=== PATIENT | female | born 1960 | race Caucasian/White ===

== ENCOUNTER 2017-05-28 06:41 | Inpatient (IN) | payer MEDICAID ==
[~2017-05-28] VITALS: Ht 177.8 cm; Wt 63.0 kg
[2017-05-28] MEDS ORDERED: SODIUM CHLORIDE 0.9% 1,000 ML IV ONE ×2 (07:08→09:31)
[2017-05-28] MEDS ORDERED: THIAMINE 100MG TABLET PO ONE (07:30)
[2017-05-28] MEDS ORDERED: LORazepam 2 MG/ML, 1ML IVPush ONE (07:30)
[2017-05-28] MEDS ORDERED: FOLIC ACID 1 MG TABLET PO ONE (07:30)
[2017-05-28] MEDS ORDERED: SODIUM CHLORIDE 0.9% 1,000ML IVBOLUS ONE (07:30)
[2017-05-28] MEDS ORDERED: ONDANSETRON 2MG/ML, 2ML IVPush ONE (07:30)
[2017-05-28] MEDS ORDERED: SODIUM CHLORIDE FLUSH 10ML SYR IVF ONE (07:30)
[2017-05-28] MEDS ORDERED: THIAMINE 100MG TABLET ONE (07:44)
[2017-05-28] MEDS ORDERED: ONDANSETRON 2MG/ML, 2ML ONE (07:44)
[2017-05-28] MEDS ORDERED: LORazepam 2 MG/ML, 1ML ONE (07:45)
[2017-05-28 07:55] LABS: ASPARTATE AMINO TRANSFERASE 287 U/L (15-37); BLOOD UREA NITROGEN 7 mg/dL (7-18); HEMATOCRIT 42.4 % (34.6-47.8); HEMOGLOBIN 14.7 g/dL (11.7-16.4); WHITE BLOOD COUNT 4.6 x10^3/uL (3.4-10)
[2017-05-28] MEDS ORDERED: SODIUM CHLORIDE FLUSH 10ML SYR IVF PRN (10:00)
[2017-05-28] MEDS: THIAMINE 100MG TABLET PO SCH (11:30)
[2017-05-28] MEDS ORDERED: PROMETHAZINE 25 MG/ML, 1ML IM PRN (11:30)
[2017-05-28] MEDS: FOLIC ACID 1 MG TABLET PO SCH (11:30)
[2017-05-28 12:59] VITALS: BP 149/68
[2017-05-28] MEDS: SODIUM CHLORIDE 0.9% 1,000 ML IV SCH ×2 (14:00→21:43)
[2017-05-28] MEDS: LACTULOSE 10 GM/15 ML UDC PO SCH (21:42)
[2017-05-28] MEDS: FAMOTIDINE 20 MG TABLET PO SCH (21:42)
[2017-05-28] MEDS: LORazepam 2 MG/ML, 1ML IVPush PRN (21:43)
[2017-05-28 21:59] VITALS: BP 138/65
[2017-05-29 02:54] VITALS: BP 146/76
[2017-05-29 05:37] LABS: BLOOD UREA NITROGEN 6 mg/dL (7-18)
[2017-05-29 05:42] LABS: HEMATOCRIT 40.4 % (34.6-47.8); HEMOGLOBIN 14.1 g/dL (11.7-16.4); WHITE BLOOD COUNT 3.9 x10^3/uL (3.4-10)
[2017-05-29 05:51] LABS: ASPARTATE AMINO TRANSFERASE 182 U/L (15-37)
[2017-05-29 06:48] VITALS: BP 128/72
[2017-05-29] MEDS: SODIUM CHLORIDE 0.9% 1,000 ML IV SCH ×2 (07:00→20:40)
[2017-05-29] MEDS: FAMOTIDINE 20 MG TABLET PO SCH ×2 (10:03→20:40)
[2017-05-29] MEDS: THIAMINE 100MG TABLET PO SCH (10:03)
[2017-05-29] MEDS: LACTULOSE 10 GM/15 ML UDC PO SCH ×3 (10:03→20:40)
[2017-05-29] MEDS: FOLIC ACID 1 MG TABLET PO SCH (10:03)
[2017-05-29] MEDS: LORazepam 2 MG/ML, 1ML IVPush PRN (10:04)
[2017-05-29] MEDS ORDERED: POTASSIUM PHOSPHATE 44 MEQ in SODIUM CHLORIDE 0.9% 500 ML IV ONE (10:30)
[2017-05-29] MEDS ORDERED: MAGNESIUM SULFATE PMX 4GM/100M 100 ML IV ONE (10:30)
[2017-05-29 13:39] VITALS: BP 130/64
[2017-05-29] MEDS: ENOXAPARIN 40 MG/0.4 ML SQ SCH (18:27)
[2017-05-29 19:26] VITALS: BP 124/60
[2017-05-30 01:18] VITALS: BP 143/73
[2017-05-30 04:49] LABS: DAU SCREEN DISCLAIMER
[2017-05-30] MEDS: SODIUM CHLORIDE 0.9% 1,000 ML IV SCH ×2 (05:47→12:20)
[2017-05-30 05:51] LABS: BLOOD UREA NITROGEN 7 mg/dL (7-18)
[2017-05-30 05:52] LABS: HEMATOCRIT 40.3 % (34.6-47.8); HEMOGLOBIN 14.1 g/dL (11.7-16.4); WHITE BLOOD COUNT 2.8 x10^3/uL (3.4-10)
[2017-05-30 05:55] LABS: ASPARTATE AMINO TRANSFERASE 131 U/L (15-37)
[2017-05-30 06:51] VITALS: BP 161/79
[2017-05-30] MEDS: FOLIC ACID 1 MG TABLET PO SCH (09:59)
[2017-05-30] MEDS: THIAMINE 100MG TABLET PO SCH (10:00)
[2017-05-30] MEDS: FAMOTIDINE 20 MG TABLET PO SCH ×2 (10:00→21:07)
[2017-05-30] MEDS: LORazepam 2 MG/ML, 1ML IVPush PRN ×3 (10:00→21:08)
[2017-05-30] MEDS: LACTULOSE 10 GM/15 ML UDC PO SCH ×2 (10:00→21:07)
[2017-05-30 14:07] VITALS: BP 145/88
[2017-05-30] MEDS: ENOXAPARIN 40 MG/0.4 ML SQ SCH (17:40)
[2017-05-30 19:38] VITALS: BP 137/82
[2017-05-31 01:42] VITALS: BP 130/78
[2017-05-31] MEDS: LORazepam 2 MG/ML, 1ML IVPush PRN ×3 (04:48→14:25)
[2017-05-31 06:18] LABS: ASPARTATE AMINO TRANSFERASE 111 U/L (15-37); BLOOD UREA NITROGEN 9 mg/dL (7-18)
[2017-05-31 07:02] VITALS: BP 124/75
[2017-05-31] MEDS: THIAMINE 100MG TABLET PO SCH (08:53)
[2017-05-31] MEDS: FAMOTIDINE 20 MG TABLET PO SCH ×2 (08:53→20:15)
[2017-05-31] MEDS: FOLIC ACID 1 MG TABLET PO SCH (08:53)
[2017-05-31] MEDS: LACTULOSE 10 GM/15 ML UDC PO SCH ×2 (08:53→20:14)
[2017-05-31] MEDS ORDERED: MAGNESIUM SULFATE PMX 2GM/50ML 50 ML IV ONE (10:00)
[2017-05-31] MEDS: KETOROLAC 30 MG/1 ML IVPush SCH ×3 (10:40→23:00)
[2017-05-31] MEDS: POTASSIUM CHLORIDE 20 MEQ, MAGNESIUM SULFATE 1 GM, THIAMINE 100 MG, FOLIC ACID 1 MG, MV... IV SCH (14:25)
[2017-05-31 14:40] VITALS: BP 165/85
[2017-05-31] MEDS: morphine SULFATE 10 MG/ML, 1ML IVPush PRN ×2 (15:16→20:22)
[2017-05-31] MEDS: ENOXAPARIN 40 MG/0.4 ML SQ SCH (17:36)
[2017-05-31 19:52] VITALS: BP 156/82
[2017-06-01 01:26] VITALS: BP 148/76
[2017-06-01] MEDS: morphine SULFATE 10 MG/ML, 1ML IVPush PRN ×2 (01:26→09:05)
[2017-06-01] MEDS: KETOROLAC 30 MG/1 ML IVPush SCH ×4 (05:01→23:07)
[2017-06-01 05:36] LABS: HEMATOCRIT 40.9 % (34.6-47.8); HEMOGLOBIN 14.2 g/dL (11.7-16.4); WHITE BLOOD COUNT 3.3 x10^3/uL (3.4-10)
[2017-06-01 06:02] LABS: ASPARTATE AMINO TRANSFERASE 96 U/L (15-37); BLOOD UREA NITROGEN 10 mg/dL (7-18)
[2017-06-01 07:48] VITALS: BP 149/79
[2017-06-01] MEDS: FOLIC ACID 1 MG TABLET PO SCH (08:54)
[2017-06-01] MEDS: LACTULOSE 10 GM/15 ML UDC PO SCH ×2 (08:54→21:04)
[2017-06-01] MEDS: THIAMINE 100MG TABLET PO SCH (08:54)
[2017-06-01] MEDS: FAMOTIDINE 20 MG TABLET PO SCH ×2 (08:54→21:03)
[2017-06-01] MEDS: POTASSIUM CHLORIDE 20 MEQ, MAGNESIUM SULFATE 1 GM, THIAMINE 100 MG, FOLIC ACID 1 MG, MV... IV SCH (15:53)
[2017-06-01] MEDS: ENOXAPARIN 40 MG/0.4 ML SQ SCH (17:57)
[2017-06-01 18:50] VITALS: BP 136/71
[2017-06-02 00:34] VITALS: BP 157/75
[2017-06-02] MEDS: KETOROLAC 30 MG/1 ML IVPush SCH ×2 (05:05→12:45)
[2017-06-02 05:55] LABS: ASPARTATE AMINO TRANSFERASE 99 U/L (15-37); BLOOD UREA NITROGEN 7 mg/dL (7-18)
[2017-06-02 06:00] LABS: HEMATOCRIT 42.9 % (34.6-47.8); HEMOGLOBIN 14.9 g/dL (11.7-16.4); WHITE BLOOD COUNT 3.6 x10^3/uL (3.4-10)
[2017-06-02] MEDS ORDERED: FOSFOMYCIN 3 GM PACKET PO ONE (07:00)
[2017-06-02 07:05] VITALS: BP 125/80
[2017-06-02] MEDS: THIAMINE 100MG TABLET PO SCH (10:37)
[2017-06-02] MEDS: FAMOTIDINE 20 MG TABLET PO SCH (10:38)
[2017-06-02] MEDS: FOLIC ACID 1 MG TABLET PO SCH (10:38)
[2017-06-02] MEDS: LACTULOSE 10 GM/15 ML UDC PO SCH (13:46)
[2017-06-02] MEDS ORDERED: FOSF3PAC PO (15:03)
[2017-06-02] MEDS ORDERED: LACT10SO5 PO ×2 (15:18→15:20)
[2017-06-02 15:30] VITALS: BP 144/87
[2017-06-03 12:06] LABS: HEPATITIS C PCR QUANTITATION 309000 IU/mL (.)
== END 2017-06-02 17:28 | disposition home or self-care (01) | DRG 391 ==
LOC: ED 08:03 → EDIP 09:31 → 3NE 12:36
PROVIDERS: ADMIT Hospitalist; ATTEND Hospitalist
DX: K29.20 Alcoholic gastritis without bleeding (principal); K85.20 Alcohol induced acute pancreatitis without necrosis or infection; K70.10 Alcoholic hepatitis without ascites; F10.239 Alcohol dependence with withdrawal, unspecified; N39.0 Urinary tract infection, site not specified; F19.94 Other psychoactive substance use, unspecified with psychoactive substance-induced mood disorder; F15.90 Other stimulant use, unspecified, uncomplicated; F17.200 Nicotine dependence, unspecified, uncomplicated; F41.9 Anxiety disorder, unspecified; Y90.4 Blood alcohol level of 80-99 mg/100 ml; Z66 Do not resuscitate; Z82.49 Family history of ischemic heart disease and other diseases of the circulatory system
CPT/HCPCS: 36415; 76700; 80053; 80307; 81001; 82140; 82550; 82607; 83690; 83735; 84100; 84443; 85025; 85610; 86704; 86706; 86708; 86803; 87077; 87086; 87186; 87340; 87522; 93306; 96361; 96374; J1650; J1885; J2405; J3411; J3475; J3480; G0479; J2060; J2270; J7030; J7040

== ENCOUNTER 2017-07-20 14:13 | Emergency (ER) | payer MEDICAID ==
[~2017-07-20] VITALS: Ht 154.9 cm; Wt 81.0 kg
[~2017-07-20 14:13] MED LIST: FOSF3PAC PO; LACT10SO5 PO
[2017-07-20 14:31] VITALS: BP 100/52
== END 2017-07-20 16:15 | disposition home or self-care (01) ==
LOC: ED 16:00
DX: F10.220 Alcohol dependence with intoxication, uncomplicated (principal)
CPT/HCPCS: 99283

== ENCOUNTER 2017-09-07 16:53 | Emergency (ER) | payer MEDICAID ==
[~2017-09-07] VITALS: Ht 170.2 cm; Wt 65.0 kg
[2017-09-07 23:08] VITALS: BP 120/62
== END 2017-09-07 23:10 | disposition home or self-care (01) ==
LOC: ED 18:26
DX: F10.220 Alcohol dependence with intoxication, uncomplicated (principal)
CPT/HCPCS: 99283

== ENCOUNTER 2017-09-09 02:54 | Emergency (ER) | payer MEDICAID ==
[~2017-09-09] VITALS: Ht 170.2 cm; Wt 59.3 kg
[2017-09-09] MEDS ORDERED: NALOXONE 1 MG/ML, 2ML ONE (03:05)
[2017-09-09] MEDS ORDERED: NALOXONE 1 MG/ML, 2ML IVPush ONE (03:30)
[2017-09-09] MEDS ORDERED: SODIUM CHLORIDE 0.9% 1,000ML IVBOLUS ONE (04:00)
[2017-09-09 10:24] VITALS: BP 116/61
== END 2017-09-09 11:35 | disposition home or self-care (01) ==
LOC: ED 05:09
DX: F10.120 Alcohol abuse with intoxication, uncomplicated (principal); F15.10 Other stimulant abuse, uncomplicated; Z79.899 Other long term (current) drug therapy
CPT/HCPCS: 36415; 80307; 82962; 96361; 96374; 99285; J2310; J7030

== ENCOUNTER 2018-01-27 15:59 | Emergency (ER) | payer MEDICAID ==
[~2018-01-27] VITALS: Ht 177.8 cm; Wt 78.0 kg
[2018-01-27 16:47] LABS: ANION GAP 9 mmol/L (5-15); CALCIUM 7.2 mg/dL (8.5-10.1); CHLORIDE 113 mmol/L (98-107); CREATININE 0.53 mg/dL (0.55-1.02)
[2018-01-27 21:20] VITALS: BP 137/80
== END 2018-01-27 22:31 | disposition home or self-care (01) ==
LOC: ED 19:03
DX: F10.221 Alcohol dependence with intoxication delirium (principal); G92 Toxic encephalopathy; Z79.899 Other long term (current) drug therapy
CPT/HCPCS: 36415; 80048; 80307; 83735; 99284

== ENCOUNTER 2018-01-30 09:34 | Inpatient (IN) | payer MEDICAID, OTHER ==
[~2018-01-30] VITALS: Ht 177.8 cm; Wt 57.5 kg
[2018-01-30] MEDS ORDERED: THIAMINE 100MG TABLET ONE (09:56)
[2018-01-30] MEDS ORDERED: SODIUM CHLORIDE 0.9% 1,000ML IVBOLUS ONE (10:00)
[2018-01-30] MEDS ORDERED: THIAMINE 100MG TABLET PO ONE (10:00)
[2018-01-30 10:06] LABS: BASOPHILS # (AUTO) 0.01 x10^3/uL (0-0.1); BASOPHILS % (AUTO) 0 % (0-1); EOSINOPHILS # (AUTO) 0.01 x10^3/uL (0-0.4); EOSINOPHILS % (AUTO) 0 % (1-7); LYMPHOCYTES % (AUTO) 8 % (22-44); MD NO; MEAN CORPUSCULAR HEMOGLOBIN 32.1 pg (27.0-34.8); MEAN CORPUSCULAR HGB CONC 34.4 g/dL (32.4-35.8); MEAN CORPUSCULAR VOLUME 93.5 fL (80-100); MEAN PLATELET VOLUME 6.5 fL (7.4-10.4); MONOCYTES # (AUTO) 0.12 x10^3/uL (0.2-0.8); MONOCYTES % (AUTO) 2 % (2-9); NEUTROPHILS # (AUTO) 4.66 x10^3/uL (1.8-6.8); NEUTROPHILS % (AUTO) 90 % (42-75); PLATELET COUNT 112 x10^3/uL (130-400); RED CELL DISTRIBUTION WIDTH 13.1 % (9.6-15.2)
[2018-01-30 10:15] LABS: ALANINE AMINOTRANSFERASE 53 U/L (12-78); ALBUMIN 3.4 g/dL (3.4-5.0); ANION GAP 11 mmol/L (5-15); CALCIUM 7.9 mg/dL (8.5-10.1); CHLORIDE 103 mmol/L (98-107); CREATININE 0.52 mg/dL (0.55-1.02)
[2018-01-30 10:17] LABS: ALKALINE PHOSPHATASE 137 U/L (45-117); BILIRUBIN,TOTAL 1.1 mg/dL (0.2-1.0); TOTAL PROTEIN 8.4 g/dL (6.4-8.2)
[2018-01-30 11:25] LABS: MICROSCOPIC NOT IND
[2018-01-30 11:26] LABS: CULTURE INDICATED? NO
[2018-01-30] MEDS ORDERED: POTASSIUM CHLORIDE 20 MEQ TAB.ER.PRT PO ONE ×2 (12:30→16:00)
[2018-01-30] MEDS ORDERED: POTASSIUM CHLORIDE 20 MEQ TAB.ER.PRT ONE (12:30)
[2018-01-30 13:42] VITALS: BP 142/78
[2018-01-30 13:47] VITALS: BP 142/78
[2018-01-30] MEDS ORDERED: POTASSIUM CHLORIDE 10 MEQ, MVI ADULT 10 ML, FOLIC ACID 1 MG, MAGNESIUM SULFATE 1 GM in ... IV SCH (15:29)
[2018-01-30] MEDS: ENOXAPARIN 40 MG/0.4 ML SQ SCH ×2 (15:30→16:37)
[2018-01-30] MEDS ORDERED: BACLOFEN 10 MG TABLET PO PRN (15:30)
[2018-01-30] MEDS ORDERED: DOCUSATE 100 MG CAPSULE PO PRN (15:30)
[2018-01-30] MEDS ORDERED: BUTALB/APAP/CAFFEINE 50MG/325MG/40MG PO PRN (15:30)
[2018-01-30] MEDS ORDERED: LABETALOL 5MG/ML, 20ML IV PRN (15:30)
[2018-01-30] MEDS ORDERED: KETOROLAC 30 MG/1 ML IV PRN (15:30)
[2018-01-30] MEDS ORDERED: BISACODYL 10 MG SUPP PR PRN (15:30)
[2018-01-30] MEDS ORDERED: ONDANSETRON 2MG/ML, 2ML IV PRN (15:30)
[2018-01-30] MEDS ORDERED: LORazepam 2 MG/ML, 1ML IV PRN ×4 (15:30)
[2018-01-30] MEDS: LORazepam 2 MG/ML, 1ML IV PRN ×2 (16:37→21:14)
[2018-01-30] MEDS: SUCRALFATE 1 GM/10 ML UDC PO SCH ×2 (16:37→21:04)
[2018-01-30] MEDS: OMEPRAZOLE 20 MG CAPSULE.DR PO SCH (16:37)
[2018-01-30 19:11] VITALS: BP 104/57
[2018-01-31 01:14] VITALS: BP 118/65
[2018-01-31 04:46] LABS: MEAN CORPUSCULAR HEMOGLOBIN 32.6 pg (27.0-34.8); MEAN CORPUSCULAR HGB CONC 34.7 g/dL (32.4-35.8); MEAN CORPUSCULAR VOLUME 94.1 fL (80-100); MEAN PLATELET VOLUME 6.8 fL (7.4-10.4); PLATELET COUNT 97 x10^3/uL (130-400); RED CELL DISTRIBUTION WIDTH 13.8 % (9.6-15.2)
[2018-01-31 04:57] LABS: ALBUMIN 2.7 g/dL (3.4-5.0); ANION GAP 5 mmol/L (5-15); CALCIUM 7.9 mg/dL (8.5-10.1); CHLORIDE 107 mmol/L (98-107)
[2018-01-31 05:01] LABS: ALANINE AMINOTRANSFERASE 37 U/L (12-78); ALKALINE PHOSPHATASE 105 U/L (45-117); BILIRUBIN,TOTAL 1.3 mg/dL (0.2-1.0); CREATININE 0.54 mg/dL (0.55-1.02); TOTAL PROTEIN 6.9 g/dL (6.4-8.2)
[2018-01-31 05:20] LABS: BASOPHILS # (AUTO) 0.02 x10^3/uL (0-0.1); BASOPHILS % (AUTO) 1 % (0-1); EOSINOPHILS # (AUTO) 0.11 x10^3/uL (0-0.4); EOSINOPHILS % (AUTO) 3 % (1-7); LYMPHOCYTES # (AUTO) 1.48 x10^3/uL (1-3.4); LYMPHOCYTES % (AUTO) 41 % (22-44); MD SCAN; MONOCYTES # (AUTO) 0.17 x10^3/uL (0.2-0.8); MONOCYTES % (AUTO) 5 % (2-9); NEUTROPHILS # (AUTO) 1.86 x10^3/uL (1.8-6.8); NEUTROPHILS % (AUTO) 51 % (42-75)
[2018-01-31 07:00] VITALS: BP 106/59
[2018-01-31] MEDS: SUCRALFATE 1 GM/10 ML UDC PO SCH ×4 (07:33→20:16)
[2018-01-31] MEDS: OMEPRAZOLE 20 MG CAPSULE.DR PO SCH (08:44)
[2018-01-31] MEDS: POTASSIUM CHLORIDE 20 MEQ TAB.ER.PRT PO SCH ×2 (11:54→17:15)
[2018-01-31 12:05] VITALS: BP 108/57
[2018-01-31] MEDS ORDERED: LORazepam 0.5MG TABLET PO PRN (13:00)
[2018-01-31] MEDS ORDERED: LORazepam 1MG TABLET PO PRN ×2 (13:00)
[2018-01-31] MEDS: LORazepam 1MG TABLET PO PRN ×3 (17:15→23:27)
[2018-01-31 18:47] VITALS: BP 119/71
[2018-02-01 01:24] VITALS: BP 122/65
[2018-02-01] MEDS: LORazepam 1MG TABLET PO PRN ×2 (04:29→14:56)
[2018-02-01 05:18] LABS: ANION GAP 4 mmol/L (5-15); CHLORIDE 106 mmol/L (98-107)
[2018-02-01 05:19] LABS: CREATININE 0.51 mg/dL (0.55-1.02)
[2018-02-01 07:04] VITALS: BP 112/65
[2018-02-01] MEDS ORDERED: NEUTRA PHOS K 250 MG TABLET PO SCH (10:00)
[2018-02-01] MEDS ORDERED: MAGNESIUM SULFATE PMX 4GM/100M 100 ML IV ONE (10:00)
[2018-02-01] MEDS: SUCRALFATE 1 GM/10 ML UDC PO SCH ×2 (10:01→11:00)
[2018-02-01] MEDS: OMEPRAZOLE 20 MG CAPSULE.DR PO SCH (10:01)
[2018-02-01 12:55] VITALS: BP 119/75
== END 2018-02-01 17:41 | disposition left against medical advice (07) | DRG 432 ==
LOC: ED 12:31 → 3NE 12:42
PROVIDERS: ADMIT Hospitalist; ATTEND Hospitalist
DX: K70.9 Alcoholic liver disease, unspecified (principal); E43 Unspecified severe protein-calorie malnutrition; Z68.1 Body mass index [BMI] 19.9 or less, adult; F10.239 Alcohol dependence with withdrawal, unspecified; D69.6 Thrombocytopenia, unspecified; E83.39 Other disorders of phosphorus metabolism; E83.42 Hypomagnesemia; E87.6 Hypokalemia; F17.200 Nicotine dependence, unspecified, uncomplicated; F41.9 Anxiety disorder, unspecified; K74.60 Unspecified cirrhosis of liver; Z53.21 Procedure and treatment not carried out due to patient leaving prior to being seen by health care provider; Z82.49 Family history of ischemic heart disease and other diseases of the circulatory system
CPT/HCPCS: 36415; 99285; J7042; 80048; 80053; 80307; 81003; 83690; 83735; 84100; 85025; 93005; J1650; J3475; J3480; J2060; J7030

== ENCOUNTER 2018-08-24 11:49 | Emergency (ER) | payer MEDICAID ==
[~2018-08-24] VITALS: Ht 177.8 cm; Wt 46.0 kg
[~2018-08-24 11:49] MED LIST changes: +CEFD300C37 PO; +DOXY100T PO; +GUAI600T31 PO; +VANC1VIA3 PO
--- NOTE | 2018-08-24 13:08 | NUR ---
pt to room from wall.
[2018-08-24 13:24] VITALS: BP 109/67
--- NOTE | 2018-08-24 13:32 | NUR ---
PT BIB [facility] FOR WANTING TO KILL SATAN AND TO DETOX. PT IS ALERT, ORIENTED, WITH NAD. BP: 130/87, HR 86, 94% RA, RR16. PT STATED "I WANT A BEER AND ATIVAN". PT REPORTS THAT HER LAST DRINK WAS TODAY: BEER, VODKA, AND HOT DAME.
--- NOTE | 2018-08-24 13:54 | NUR ---
PT STATED THAT SHE WANTS TO LEAVE AND GO GET HER ABX, BECAUSE SHE NEEDS TO TAKE THEM. MD INFORMED. HE WILL PRINT D/C PAPERS. PT AMBULATED TO WITH STEADY GAIT. PT IS GETTING DRESSEED.
--- NOTE | 2018-08-24 14:13 | NUR ---
Patient given discharge instructions and they have confirmed that they understand the instructions. Patient ambulatory with steady gait.
== END 2018-08-24 14:16 | disposition home or self-care (01) ==
LOC: ED 14:00
DX: F10.220 Alcohol dependence with intoxication, uncomplicated (principal); R56.9 Unspecified convulsions; Z72.9 Problem related to lifestyle, unspecified; Z87.19 Personal history of other diseases of the digestive system; Y90.9 Presence of alcohol in blood, level not specified
CPT/HCPCS: 99283

== ENCOUNTER 2018-09-09 07:25 | Inpatient (IN) | payer MEDICAID ==
[~2018-09-09] VITALS: Ht 177.8 cm; Wt 52.0 kg
[2018-09-09] MEDS ORDERED: SODIUM CHLORIDE 0.9% 1,000ML IVBOLUS ONE (08:00)
[2018-09-09] MEDS ORDERED: LORazepam 2 MG/ML, 1ML IVPush PRN (08:00)
[2018-09-09] MEDS ORDERED: PLEASE ENTER HEIGHT AND WEIGHT MC SCH (08:00)
[2018-09-09] MEDS ORDERED: SODIUM CHLORIDE FLUSH 10ML SYR IVF ONE (08:00)
[2018-09-09] MEDS ORDERED: MAGNESIUM SULFATE 1 GM, THIAMINE 100 MG, FOLIC ACID 1 MG, MVI ADULT 10 ML in SODIUM CHL... IV ONE (08:00)
--- NOTE | 2018-09-09 08:07 | NUR ---
LATE ENTRY 0732. BIB EMS FROM [facility]. PT W/ C/O N/V/D / DETOX FROM ALCOHOL LAST DRINK 09/08 AT 1500. PT WITH DIFFUSE PETICAIAL RASH T/O GROIN, BACK, UPPER TORSO. PT CEACHECTIC, STATES SHE HAS BEEN LOSING WEIGHT OVER PAST FEW MONTHS. PT RPTS HX OF SEIZURES WITH DETOXING. STATES SHE WOULD LIKE TO GET INTO [facility]. DR. LOPEZ AT BEDSIDE, ASSESSMENT REV. AND ORDERS REC'D. ISO CART OUTSIDE OF ROOM. CALL LIGHT W/I REACH
[2018-09-09 08:26] LABS: INTERNATIONAL NORMALIZED RATIO 1.19 (0.93-1.1); PROTHROMBIN TIME 12.4 Seconds (9.6-11.5)
[2018-09-09 08:28] LABS: MEAN CORPUSCULAR HEMOGLOBIN 32.1 pg (27.0-34.8); MEAN CORPUSCULAR HGB CONC 33.9 g/dL (32.4-35.8); MEAN CORPUSCULAR VOLUME 94.9 fL (80-100); MEAN PLATELET VOLUME 8.1 fL (7.4-10.4); PLATELET COUNT 101 x10^3/uL (130-400); RED BLOOD COUNT 4.18 x10^6/uL (3.82-5.3); RED CELL DISTRIBUTION WIDTH 15.2 % (9.6-15.2)
[2018-09-09 08:29] LABS: ALANINE AMINOTRANSFERASE 34 U/L (12-78); ALBUMIN 2.5 g/dL (3.4-5.0); ANION GAP 9 mmol/L (5-15); CALCIUM 7.7 mg/dL (8.5-10.1); CHLORIDE 95 mmol/L (98-107)
[2018-09-09] MEDS ORDERED: CEFTRIAXONE PMX 1GM/50ML 50 ML IV ONE (08:30)
[2018-09-09] MEDS ORDERED: DOXYCYCLINE 100 MG in DEXTROSE 5% 250 ML IV ONE (08:30)
[2018-09-09 08:31] LABS: ALKALINE PHOSPHATASE 107 U/L (45-117); BILIRUBIN,TOTAL 1.5 mg/dL (0.2-1.0); TOTAL PROTEIN 7.3 g/dL (6.4-8.2)
[2018-09-09] MEDS ORDERED: CEFTRIAXONE PMX 1GM/50ML 50 ML ONE (08:49)
[2018-09-09 09:23] LABS: MD YES
[2018-09-09 09:25] LABS: <RBC MORPHOLOGY> NORMAL; BAND#(MANUAL) 1.46 x10^3/uL; BANDS%(MANUAL) 16 % (0-7); LYMPH#(MANUAL) 0.73 x10^3/uL (1-3.4); LYMPHS% (MANUAL) 8 % (22-44); MONOS#(MANUAL) 0.36 x10^3/uL (0.3-2.7); MONOS% (MANUAL) 4 % (2-9); SEG#(MANUAL) 6.55 x10^3/uL (1.8-6.8); SEGS% (MANUAL) 72 % (42-75)
[2018-09-09 09:26] LABS: <PLATELET ESTIMATE> DECREASED; <PLT MORPHOLOGY> NORMAL PLT MORPH
[2018-09-09] MEDS ORDERED: D5%-0.45NACL+KCL 20MEQ 1,000 ML IV SCH (09:51)
[2018-09-09] MEDS ORDERED: ONDANSETRON 2MG/ML, 2ML IVPush PRN (10:00)
[2018-09-09] MEDS ORDERED: GUAIFENESIN/DM 200-20MG, 10ML UDC PO PRN (10:00)
[2018-09-09] MEDS ORDERED: LORazepam 2 MG/ML, 1ML IV PRN ×4 (10:30)
[2018-09-09 10:31] LABS: D-DIMER (DIC) 0.89 ug/mlFEU (0.00-0.52); PROTIME 12.4 Seconds (9.6-11.5)
[2018-09-09 10:35] VITALS: BP 127/75
[2018-09-09] MEDS: PANTOPROZOLE 40MG TABLET PO SCH (11:17)
[2018-09-09] MEDS: CHLORDIAZEPOXIDE 25 MG CAPSULE PO SCH ×3 (11:17→20:20)
[2018-09-09] MEDS: AMPICILLIN/SULBACTAM 3 GM in SODIUM CHLORIDE 0.9% 100 ML IV SCH ×2 (11:17→20:21)
[2018-09-09] MEDS: THIAMINE 100 MG in SODIUM CHLORIDE 0.9% 50 ML IV SCH (11:58)
[2018-09-09 14:42] VITALS: BP 163/89
[2018-09-09] MEDS: D5%-0.9% NACL+KCL 20MEQ 1,000 ML IV SCH (15:32)
[2018-09-09 19:04] VITALS: BP 137/78
[2018-09-09] MEDS: LACTULOSE 10 GM/15 ML UDC PO SCH (20:20)
[2018-09-09 22:14] LABS: SODIUM,URINE RANDOM 52 mmol/L
[2018-09-09 22:15] LABS: OSMOLALITY,URINE 420 mOsm/kg (500-850)
[2018-09-09 22:16] LABS: MICROSCOPIC INDICATED
[2018-09-09] MEDS ORDERED: IBUPROFEN 600 MG TABLET PO PRN (22:30)
[2018-09-09 22:31] LABS: CULTURE INDICATED? YES
[2018-09-10 01:21] LABS: CLOSTRIDIUM DIFFICILE ANTIGEN NEGATIVE; CLOSTRIDIUM DIFFICILE TOXIN NEGATIVE (Negative)
[2018-09-10 03:54] VITALS: BP 105/63
[2018-09-10] MEDS: AMPICILLIN/SULBACTAM 3 GM in SODIUM CHLORIDE 0.9% 100 ML IV SCH ×3 (04:04→20:20)
[2018-09-10] MEDS: D5%-0.9% NACL+KCL 20MEQ 1,000 ML IV SCH ×2 (04:04→20:20)
[2018-09-10 05:21] LABS: MEAN CORPUSCULAR HEMOGLOBIN 31.7 pg (27.0-34.8); MEAN CORPUSCULAR HGB CONC 33.4 g/dL (32.4-35.8); MEAN CORPUSCULAR VOLUME 94.9 fL (80-100); MEAN PLATELET VOLUME 8.1 fL (7.4-10.4); PLATELET COUNT 85 x10^3/uL (130-400); RED BLOOD COUNT 3.74 x10^6/uL (3.82-5.3)
[2018-09-10 05:25] LABS: ALANINE AMINOTRANSFERASE 29 U/L (12-78); ALBUMIN 1.9 g/dL (3.4-5.0); ANION GAP 7 mmol/L (5-15); CALCIUM 7.3 mg/dL (8.5-10.1); CHLORIDE 108 mmol/L (98-107); CREATININE 0.36 mg/dL (0.55-1.02)
[2018-09-10 05:28] LABS: ALKALINE PHOSPHATASE 89 U/L (45-117); TOTAL PROTEIN 5.9 g/dL (6.4-8.2)
[2018-09-10 06:04] LABS: BASOPHILS # (AUTO) 0.02 x10^3/uL (0-0.1); BASOPHILS % (AUTO) 0 % (0-1); EOSINOPHILS % (AUTO) 2 % (1-7); LYMPHOCYTES % (AUTO) 23 % (22-44); MD SCAN; MONOCYTES # (AUTO) 0.44 x10^3/uL (0.2-0.8); MONOCYTES % (AUTO) 9 % (2-9); NEUTROPHILS # (AUTO) 3.46 x10^3/uL (1.8-6.8); NEUTROPHILS % (AUTO) 66 % (42-75)
[2018-09-10] MEDS: PANTOPROZOLE 40MG TABLET PO SCH (06:43)
[2018-09-10 06:48] VITALS: BP 113/74
[2018-09-10] MEDS: FOLIC ACID 1 MG TABLET PO SCH (08:17)
[2018-09-10] MEDS: MULTIVITAMINS/MINERALS TABLET PO SCH (08:17)
[2018-09-10] MEDS: CHLORDIAZEPOXIDE 25 MG CAPSULE PO SCH ×3 (08:17→21:06)
[2018-09-10] MEDS: LORazepam 2 MG/ML, 1ML IV PRN ×2 (08:17→13:48)
[2018-09-10] MEDS: POTASSIUM ACID PHOSPHATE 500 MG TABLET.SOL PO SCH ×3 (08:17→20:20)
[2018-09-10] MEDS: LACTULOSE 10 GM/15 ML UDC PO SCH ×2 (08:17→20:21)
[2018-09-10] MEDS: MAGNESIUM OXIDE 400 MG TABLET PO SCH ×2 (08:17→20:24)
[2018-09-10] MEDS: THIAMINE 100 MG in SODIUM CHLORIDE 0.9% 50 ML IV SCH (11:14)
[2018-09-10 12:27] VITALS: BP 112/67
[2018-09-10 20:03] VITALS: BP 127/72
[2018-09-11] MEDS: POTASSIUM ACID PHOSPHATE 500 MG TABLET.SOL PO SCH ×4 (01:55→16:53)
[2018-09-11] MEDS: LORazepam 2 MG/ML, 1ML IV PRN ×3 (01:56→12:13)
[2018-09-11 01:58] VITALS: BP 138/81
[2018-09-11] MEDS: AMPICILLIN/SULBACTAM 3 GM in SODIUM CHLORIDE 0.9% 100 ML IV SCH ×3 (04:22→20:25)
[2018-09-11 06:45] VITALS: BP 135/82
[2018-09-11] MEDS: CHLORDIAZEPOXIDE 25 MG CAPSULE PO SCH ×3 (08:46→21:43)
[2018-09-11] MEDS: LACTULOSE 10 GM/15 ML UDC PO SCH ×2 (08:46→21:43)
[2018-09-11] MEDS: PANTOPROZOLE 40MG TABLET PO SCH (08:46)
[2018-09-11] MEDS: MAGNESIUM OXIDE 400 MG TABLET PO SCH ×2 (08:46→20:25)
[2018-09-11] MEDS: MULTIVITAMINS/MINERALS TABLET PO SCH (08:46)
[2018-09-11] MEDS: FOLIC ACID 1 MG TABLET PO SCH (08:47)
[2018-09-11] MEDS: D5%-0.9% NACL+KCL 20MEQ 1,000 ML IV SCH (10:34)
[2018-09-11] MEDS: THIAMINE 100 MG in SODIUM CHLORIDE 0.9% 50 ML IV SCH (10:34)
[2018-09-11 10:35] LABS: MEAN CORPUSCULAR HEMOGLOBIN 32.7 pg (27.0-34.8); MEAN CORPUSCULAR HGB CONC 34.1 g/dL (32.4-35.8); MEAN CORPUSCULAR VOLUME 95.9 fL (80-100); MEAN PLATELET VOLUME 8.1 fL (7.4-10.4); PLATELET COUNT 117 x10^3/uL (130-400); RED CELL DISTRIBUTION WIDTH 15.4 % (9.6-15.2)
[2018-09-11 10:43] LABS: ALANINE AMINOTRANSFERASE 34 U/L (12-78); ALBUMIN 1.9 g/dL (3.4-5.0); ANION GAP 6 mmol/L (5-15); CALCIUM 7.5 mg/dL (8.5-10.1); CHLORIDE 106 mmol/L (98-107); CREATININE 0.36 mg/dL (0.55-1.02)
[2018-09-11 10:45] LABS: ALKALINE PHOSPHATASE 102 U/L (45-117); BILIRUBIN,TOTAL 0.7 mg/dL (0.2-1.0)
[2018-09-11 10:56] LABS: BASOPHILS # (AUTO) 0.03 x10^3/uL (0-0.1); BASOPHILS % (AUTO) 1 % (0-1); EOSINOPHILS # (AUTO) 0.08 x10^3/uL (0-0.4); EOSINOPHILS % (AUTO) 2 % (1-7); LYMPHOCYTES # (AUTO) 0.82 x10^3/uL (1-3.4); LYMPHOCYTES % (AUTO) 23 % (22-44); MD SCAN; MONOCYTES % (AUTO) 9 % (2-9); NEUTROPHILS # (AUTO) 2.29 x10^3/uL (1.8-6.8); NEUTROPHILS % (AUTO) 65 % (42-75)
[2018-09-11 13:05] VITALS: BP 129/76
[2018-09-11 19:19] VITALS: BP 126/81
[2018-09-11] MEDS ORDERED: MAGNESIUM SULFATE PMX 2GM/50ML 50 ML IV ONE (20:30)
[2018-09-12] MEDS: D5%-0.9% NACL+KCL 20MEQ 1,000 ML IV SCH ×2 (00:54→14:57)
[2018-09-12] MEDS: POTASSIUM ACID PHOSPHATE 500 MG TABLET.SOL PO SCH ×4 (01:50→20:26)
[2018-09-12 02:55] VITALS: BP 119/74
[2018-09-12] MEDS: AMPICILLIN/SULBACTAM 3 GM in SODIUM CHLORIDE 0.9% 100 ML IV SCH ×3 (03:58→20:27)
[2018-09-12 05:31] LABS: BASOPHILS # (AUTO) 0.02 x10^3/uL (0-0.1); BASOPHILS % (AUTO) 1 % (0-1); EOSINOPHILS # (AUTO) 0.07 x10^3/uL (0-0.4); EOSINOPHILS % (AUTO) 2 % (1-7); LYMPHOCYTES # (AUTO) 0.97 x10^3/uL (1-3.4); LYMPHOCYTES % (AUTO) 25 % (22-44); MD NO; MEAN CORPUSCULAR HEMOGLOBIN 32.6 pg (27.0-34.8); MEAN CORPUSCULAR VOLUME 95.6 fL (80-100); MEAN PLATELET VOLUME 8.1 fL (7.4-10.4); MONOCYTES # (AUTO) 0.34 x10^3/uL (0.2-0.8); MONOCYTES % (AUTO) 9 % (2-9); NEUTROPHILS # (AUTO) 2.55 x10^3/uL (1.8-6.8); NEUTROPHILS % (AUTO) 65 % (42-75); PLATELET COUNT 128 x10^3/uL (130-400); RED BLOOD COUNT 3.73 x10^6/uL (3.82-5.3); RED CELL DISTRIBUTION WIDTH 15.3 % (9.6-15.2)
[2018-09-12 05:39] LABS: CHLORIDE 105 mmol/L (98-107)
[2018-09-12 05:48] LABS: ALANINE AMINOTRANSFERASE 29 U/L (12-78); ALBUMIN 1.9 g/dL (3.4-5.0); ALKALINE PHOSPHATASE 106 U/L (45-117); ANION GAP 5 mmol/L (5-15); BILIRUBIN,TOTAL 0.6 mg/dL (0.2-1.0); CALCIUM 7.7 mg/dL (8.5-10.1); CREATININE 0.35 mg/dL (0.55-1.02)
[2018-09-12] MEDS: PANTOPROZOLE 40MG TABLET PO SCH (07:52)
[2018-09-12] MEDS: MAGNESIUM OXIDE 400 MG TABLET PO SCH ×2 (07:52→20:27)
[2018-09-12] MEDS: MULTIVITAMINS/MINERALS TABLET PO SCH (07:52)
[2018-09-12] MEDS: CHLORDIAZEPOXIDE 25 MG CAPSULE PO SCH ×3 (07:52→21:19)
[2018-09-12] MEDS: LACTULOSE 10 GM/15 ML UDC PO SCH ×2 (07:52→20:26)
[2018-09-12] MEDS: FOLIC ACID 1 MG TABLET PO SCH (07:52)
[2018-09-12 08:16] VITALS: BP 138/82
[2018-09-12] MEDS: THIAMINE 100 MG in SODIUM CHLORIDE 0.9% 50 ML IV SCH (11:12)
[2018-09-12] MEDS: GABAPENTIN 100 MG CAPSULE PO SCH ×3 (12:06→20:27)
[2018-09-12 12:20] VITALS: BP 122/75
[2018-09-12 12:51] LABS: RAPID INFLUENZA A Negative (Negative); RAPID INFLUENZA B Negative (Negative)
[2018-09-12 19:43] VITALS: BP 122/80
[2018-09-13 01:53] VITALS: BP 111/73
[2018-09-13] MEDS: POTASSIUM ACID PHOSPHATE 500 MG TABLET.SOL PO SCH ×4 (01:58→20:05)
[2018-09-13] MEDS: AMPICILLIN/SULBACTAM 3 GM in SODIUM CHLORIDE 0.9% 100 ML IV SCH ×3 (04:14→20:16)
[2018-09-13] MEDS: D5%-0.9% NACL+KCL 20MEQ 1,000 ML IV SCH ×2 (04:14→18:31)
[2018-09-13 06:02] LABS: BASOPHILS # (AUTO) 0.04 x10^3/uL (0-0.1); BASOPHILS % (AUTO) 1 % (0-1); EOSINOPHILS # (AUTO) 0.05 x10^3/uL (0-0.4); EOSINOPHILS % (AUTO) 1 % (1-7); LYMPHOCYTES # (AUTO) 0.99 x10^3/uL (1-3.4); LYMPHOCYTES % (AUTO) 23 % (22-44); MD NO; MEAN CORPUSCULAR HEMOGLOBIN 32.5 pg (27.0-34.8); MEAN CORPUSCULAR HGB CONC 33.8 g/dL (32.4-35.8); MEAN CORPUSCULAR VOLUME 96.3 fL (80-100); MEAN PLATELET VOLUME 8.1 fL (7.4-10.4); MONOCYTES # (AUTO) 0.35 x10^3/uL (0.2-0.8); MONOCYTES % (AUTO) 8 % (2-9); NEUTROPHILS # (AUTO) 2.92 x10^3/uL (1.8-6.8); NEUTROPHILS % (AUTO) 67 % (42-75); PLATELET COUNT 171 x10^3/uL (130-400); RED BLOOD COUNT 3.73 x10^6/uL (3.82-5.3); RED CELL DISTRIBUTION WIDTH 15.3 % (9.6-15.2)
[2018-09-13 06:11] LABS: CHLORIDE 104 mmol/L (98-107)
[2018-09-13 06:23] LABS: ALANINE AMINOTRANSFERASE 31 U/L (12-78); ALKALINE PHOSPHATASE 108 U/L (45-117); ANION GAP 5 mmol/L (5-15); BILIRUBIN,TOTAL 0.6 mg/dL (0.2-1.0); CALCIUM 7.7 mg/dL (8.5-10.1); CREATININE 0.38 mg/dL (0.55-1.02); TOTAL PROTEIN 6.2 g/dL (6.4-8.2)
[2018-09-13 07:30] VITALS: BP 100/67
[2018-09-13] MEDS: CHLORDIAZEPOXIDE 25 MG CAPSULE PO SCH ×3 (08:02→20:51)
[2018-09-13] MEDS: LACTULOSE 10 GM/15 ML UDC PO SCH ×2 (08:03→20:52)
[2018-09-13] MEDS: PANTOPROZOLE 40MG TABLET PO SCH (08:03)
[2018-09-13] MEDS: GABAPENTIN 100 MG CAPSULE PO SCH ×3 (08:03→20:54)
[2018-09-13] MEDS: FOLIC ACID 1 MG TABLET PO SCH (08:03)
[2018-09-13] MEDS: MULTIVITAMINS/MINERALS TABLET PO SCH (08:03)
[2018-09-13] MEDS: MAGNESIUM OXIDE 400 MG TABLET PO SCH ×2 (08:03→20:54)
[2018-09-13] MEDS: THIAMINE 100 MG in SODIUM CHLORIDE 0.9% 50 ML IV SCH (11:42)
[2018-09-13 12:38] VITALS: BP 105/61
[2018-09-13 20:19] VITALS: BP 99/58
[2018-09-14] MEDS: POTASSIUM ACID PHOSPHATE 500 MG TABLET.SOL PO SCH ×4 (01:49→19:44)
[2018-09-14 02:10] VITALS: BP 121/73
[2018-09-14] MEDS: AMPICILLIN/SULBACTAM 3 GM in SODIUM CHLORIDE 0.9% 100 ML IV SCH (03:51)
[2018-09-14 07:35] VITALS: BP 120/75
[2018-09-14] MEDS: LACTULOSE 10 GM/15 ML UDC PO SCH ×3 (07:36→20:48)
[2018-09-14] MEDS: MULTIVITAMINS/MINERALS TABLET PO SCH (07:36)
[2018-09-14] MEDS: PANTOPROZOLE 40MG TABLET PO SCH (07:36)
[2018-09-14] MEDS: GABAPENTIN 100 MG CAPSULE PO SCH ×3 (07:36→20:48)
[2018-09-14] MEDS: THIAMINE 100MG TABLET PO SCH (07:37)
[2018-09-14] MEDS: MAGNESIUM OXIDE 400 MG TABLET PO SCH ×2 (07:37→20:48)
[2018-09-14] MEDS: CHLORDIAZEPOXIDE 25 MG CAPSULE PO SCH ×3 (07:37→20:48)
[2018-09-14] MEDS: FOLIC ACID 1 MG TABLET PO SCH (07:37)
[2018-09-14] MEDS: D5%-0.9% NACL+KCL 20MEQ 1,000 ML IV SCH ×2 (09:04→22:01)
[2018-09-14] MEDS ORDERED: AMPICILLIN/SULBACTAM 3 GM in SODIUM CHLORIDE 0.9% 50 ML IV SCH (12:00)
[2018-09-14] MEDS: CEFUROXIME 500 MG TABLET PO SCH ×2 (13:17→20:48)
[2018-09-14] MEDS: LEVOFLOXACIN 750 MG TABLET PO SCH (13:17)
[2018-09-14 15:15] VITALS: BP 96/62
[2018-09-14 19:47] VITALS: BP 98/62
[2018-09-15] MEDS: POTASSIUM ACID PHOSPHATE 500 MG TABLET.SOL PO SCH ×3 (01:13→13:34)
[2018-09-15 02:05] VITALS: BP 104/65
[2018-09-15 06:56] VITALS: BP 127/76
[2018-09-15] MEDS: CEFUROXIME 500 MG TABLET PO SCH (07:53)
[2018-09-15] MEDS: LACTULOSE 10 GM/15 ML UDC PO SCH ×2 (07:53→07:55)
[2018-09-15] MEDS: FOLIC ACID 1 MG TABLET PO SCH (07:54)
[2018-09-15] MEDS: GABAPENTIN 100 MG CAPSULE PO SCH (07:54)
[2018-09-15] MEDS: CHLORDIAZEPOXIDE 25 MG CAPSULE PO SCH (07:54)
[2018-09-15] MEDS: LEVOFLOXACIN 750 MG TABLET PO SCH (07:54)
[2018-09-15] MEDS: MULTIVITAMINS/MINERALS TABLET PO SCH (07:54)
[2018-09-15] MEDS: PANTOPROZOLE 40MG TABLET PO SCH (07:54)
[2018-09-15] MEDS: THIAMINE 100MG TABLET PO SCH (07:54)
[2018-09-15] MEDS: MAGNESIUM OXIDE 400 MG TABLET PO SCH (07:54)
[2018-09-15] MEDS: D5%-0.9% NACL+KCL 20MEQ 1,000 ML IV SCH (11:59)
[2018-09-15 13:35] VITALS: BP 107/58
[2018-09-15] MEDS ORDERED: PANT40TA5 PO (14:01)
[2018-09-15] MEDS ORDERED: GUAI5SYR PO (14:01)
[2018-09-15] MEDS ORDERED: THIA100T67 PO (14:01)
[2018-09-15] MEDS ORDERED: GABA-826 PO (14:01)
[2018-09-15] MEDS ORDERED: DOXY100C2 PO (14:01)
[2018-09-15] MEDS ORDERED: FOLI-17 PO (14:01)
[2018-09-15] MEDS ORDERED: CEFU500T50 PO (14:01)
[2018-09-15] MEDS ORDERED: MULT-484 PO (14:01)
[2018-09-15] MEDS ORDERED: MAGN400T50 PO (14:32)
== END 2018-09-15 15:54 | disposition home or self-care (01) | DRG 432 ==
LOC: ED 07:47 → EDIP 08:41 → 4NOR 10:12 → DCLOUNGE 09-15 15:37
PROVIDERS: ADMIT Internal Medicine; ATTEND Internal Medicine
DX: K70.10 Alcoholic hepatitis without ascites (principal); J69.0 Pneumonitis due to inhalation of food and vomit; E44.0 Moderate protein-calorie malnutrition; E87.1 Hypo-osmolality and hyponatremia; F10.239 Alcohol dependence with withdrawal, unspecified; B18.2 Chronic viral hepatitis C; E83.42 Hypomagnesemia; F17.210 Nicotine dependence, cigarettes, uncomplicated; K70.30 Alcoholic cirrhosis of liver without ascites; K76.0 Fatty (change of) liver, not elsewhere classified; Z82.49 Family history of ischemic heart disease and other diseases of the circulatory system; Z87.81 Personal history of (healed) traumatic fracture; Z86.19 Personal history of other infectious and parasitic diseases
CPT/HCPCS: 36415; 71045; 76705; 80053; 80307; 81001; 83605; 83615; 83690; 83735; 83930; 83935; 84100; 84300; 84443; 85025; 85049; 85379; 85384; 85610; 85730; 87040; 87081; 87086; 87324; 87400; 87806; 93005; 99291; G0378; J0295; J0696; J3411; J3475; G0475; J2060; J3480; J7030

== ENCOUNTER 2018-11-20 10:34 | Emergency (ER) | payer MEDICAID ==
[~2018-11-20] VITALS: Ht 160 cm; Wt 60.0 kg
[~2018-11-20 10:34] MED LIST changes: +CEFU500T50 PO; +DOXY100C2 PO; +FOLI-17 PO; +GABA-826 PO; +GUAI5SYR PO; +MAGN400T50 PO; +MULT-484 PO; +PANT40TA5 PO; +THIA100T67 PO
--- NOTE | 2018-11-20 11:29 | NUR ---
ED PHYSICIAN CHRISTINE COMPLETED. PT CONTINUES TO MUMBLE THAT SHE DOES NOT FEEL GOOD, EYES CLOSED. CONTINUE TO MONITOR.
--- NOTE | 2018-11-20 12:28 | NUR ---
Neel luciano in [facility] - 11/20/18 at 1228 by ARNULFO MEGANOKE PT AND PROVIDED HIM LUNCH
--- NOTE | 2018-11-20 12:37 | NUR ---
PT SLEEPING, BREATHING EVEN AND UNLABORED
--- NOTE | 2018-11-20 13:34 | NUR ---
SLEEPING, BREATHING EVEN AND UNLABORED. CONTINUE TO MONITOR
--- NOTE | 2018-11-20 14:28 | NUR ---
SLEEPING. BREATHING EVEN AND UNLABORED.
--- NOTE | 2018-11-20 14:41 | NUR ---
PT NOW OPENS EYES WHEN CALLING OUT HER NAME. PT REMAINS DROWSY AND NOT FOLLOWING COMMANDS. CONTINUE TO MONITOR
--- NOTE | 2018-11-20 15:50 | NUR ---
AMMONIA POPPER USED TO AWAKE PT ENOUGH TO DO BREATHALIZER TEST WITH .237 NOTED
--- NOTE | 2018-11-20 17:00 | NUR ---
CONTINUE TO ATTEMPT TO AWAKE PT. PT MUMBLES "OH GOD HELP ME" AND WILL NOT OPEN EYES
[2018-11-20] MEDS ORDERED: ONDANSETRON ODT 4 MG ONE (17:34)
--- NOTE | 2018-11-20 17:57 | NUR ---
DR ABEBE AWARE PT VOMITED AND NOT COMMUNICATING EXCEPT FOR SAYING "OH GOD" AND "WATER." MEDICATED PER ORDERS WITH ZOFRAN. TOLD PT SHE CANNOT DRINK WATER SINCE SHE IS ACTIVELY VOMITING. PT FOLLOWS COMMANDS AND ROLLS LEFT AND RIGHT IN GURNEY TO CHANGE BEDDING
[2018-11-20 17:59] VITALS: BP 120/51
[2018-11-20] MEDS ORDERED: ONDANSETRON ODT 4 MG PO ONE (18:00)
--- NOTE | 2018-11-20 18:22 | NUR ---
PROVIDED ICE CHIPS. TALKING MORE, ASKING FOR BLANKET
--- NOTE | 2018-11-20 18:42 | NUR ---
PT TOLERATED 12 OUNCES OF WATER WITHOUT VOMITING. STATES SHE CANNOT WALK
--- NOTE | 2018-11-20 19:28 | NUR ---
UOB WITH ASSISTANCE AND DRESSED WITH CLEAN CLOTHES. WALKED TO LOBBY BY TECH
--- NOTE | 2018-11-20 19:37 | NUR ---
RAYSHAWN RN STATES PT ASSISTED INTO TAXI OUTSIDE LOBBY WITH DESTINATION [facility]
== END 2018-11-20 19:31 | disposition home or self-care (01) ==
LOC: ED 17:21
DX: F10.220 Alcohol dependence with intoxication, uncomplicated (principal); Z72.9 Problem related to lifestyle, unspecified
CPT/HCPCS: 99283; Q0162

== ENCOUNTER 2018-11-24 18:24 | Emergency (ER) | payer MEDICAID ==
[~2018-11-24] VITALS: Ht 177.8 cm; Wt 55.0 kg
--- NOTE | 2018-11-24 18:25 | NUR ---
MOLLY CONRAD, PER REPORT PT WAS FOUND [facility]. PT IS SPEAKING INAPPROPRIATELY, SLURRING WORDS APPEARS VERY INTOXICATED, UNABLE TO ANSWER QUESTIONS TO SITUATION ALTHOUGH PT IS ORIENTED TO SELF AND PLACE AT THIS TIME. PT REFUSING TO BE PLACED IN HOSPITAL GOWN AND PLACED ON GRANITE FABRICATOR. "YOU CANT TAKE OFF MY CLOTHES OR STEAL MY COAT. NO I WONT DO IT" WHEN ASKED IF HAVING PAIN, PT DOES DENY AT THIS TIME. JUAN IDEGO DONE. PT PLACED ON NIBP, PULSE OX.
--- NOTE | 2018-11-24 18:46 | NUR ---
BEDSIDE REPORT TO TEOFILO BERMUDEZ.
--- NOTE | 2018-11-24 18:48 | NUR ---
REPORT RECEIVED FROM DORETHA/YI RED.
--- NOTE | 2018-11-24 19:03 | NUR ---
PT SLEEPING IN [facility]. RESPS EVEN AND UNLABORED. BP/SPO2 MONITORS IN PLACE. CALL LIGHT WITHIN REACH.
--- NOTE | 2018-11-24 20:06 | NUR ---
PT STILL SLEEPING IN [facility]. RESPS EVEN AND UNLABORED. BP/SPO2 MONITORS IN PLACE. CALL LIGHT WITHIN REACH.
[2018-11-24 21:05] VITALS: BP 113/61
--- NOTE | 2018-11-24 21:18 | NUR ---
PT'S AOX4. RESPS EVEN AND UNLABORED. PT DENIES TAXI VOUCHER AT [place]. PT WALKED TO EXIT WITH STEADY GAIT. NO ACUTE DISTRESS AT [place].
== END 2018-11-24 21:19 | disposition home or self-care (01) ==
LOC: ED 18:43
DX: F10.120 Alcohol abuse with intoxication, uncomplicated (principal); F17.200 Nicotine dependence, unspecified, uncomplicated; Z72.9 Problem related to lifestyle, unspecified; Y90.9 Presence of alcohol in blood, level not specified
CPT/HCPCS: 99283

== ENCOUNTER 2019-04-13 03:16 | Emergency (ER) | payer MEDICAID ==
[~2019-04-13] VITALS: Ht 177.8 cm; Wt 70.0 kg
--- NOTE | 2019-04-13 03:45 | NUR ---
PT RESPONDS ONLY TO PAINFUL STIMULI. PT PRESENTS IN C-COLLAR. PT GOING TO CT AT THIS TIME. WILL CONTINUE TO MONITOR.
--- NOTE | 2019-04-13 03:47 | NUR ---
UNABLE TO UPDATE MED REQ AT THIS TIME PT IS NOT APPROPRIATLY CONVERSIVE AT THIS TIME.
--- NOTE | 2019-04-13 04:43 | NUR ---
PT CONTINUES TO REST CALMLY IN BED. RESP EVEN. PT PLACED ON 2L O2 PER N/C. VSS, WILL CONTINUE TO MONITOR.
--- NOTE | 2019-04-13 05:37 | NUR ---
PT NOW AROUSABLE TO TOUCH OR VERBAL STIMULI. PT PUPILS 4MM. PT FALLS ASLEEP QUICKLY AFTER AROUSAL. WILL CONTINUE TO MONITOR.
--- NOTE | 2019-04-13 06:32 | NUR ---
PT AROUSABLE TO GENTLE TOUCH. PT ASKING WHAT HAPPENED. PT ORIENTED TO CURRENT SITUATION. PT PEECH SLURRED, PT IS A&OX3, FALLS BACK ASLEEP EASILY. PT O2 TURNED DOWN TO 1L PER N/C, VSS. BILAT BEDRAILS UP
--- NOTE | 2019-04-13 07:12 | NUR ---
[facility]. PT SLEEPING ON [place]. NADN. PETERS.
--- NOTE | 2019-04-13 08:14 | NUR ---
PT SLEEPING ON GURNEY. NADN. VSS. EASILY AROUSABLE. REMAINS W/ MILD SLURRED SPEECH.
[2019-04-13 09:15] VITALS: BP 107/67
--- NOTE | 2019-04-13 09:16 | NUR ---
PT SLEEPING ON CHARLES. NADN. PETERS.
--- NOTE | 2019-04-13 09:21 | NUR ---
PT MAINTAINING O2 SATS IN THE MID 90'S RA WHILE SLEEPING. PT AROUSABLE. AOX4. AMBULATORY W/ STEADY GAIT TO RESTROOM.
== END 2019-04-13 09:47 | disposition left against medical advice (07) ==
LOC: ED 09:41
DX: F10.221 Alcohol dependence with intoxication delirium (principal); G31.2 Degeneration of nervous system due to alcohol; Z72.9 Problem related to lifestyle, unspecified; F17.200 Nicotine dependence, unspecified, uncomplicated; R51 Headache; W01.0XXA Fall on same level from slipping, tripping and stumbling without subsequent striking against object, initial encounter; Y93.89 Activity, other specified; Y92.009 Unspecified place in unspecified non-institutional (private) residence as the place of occurrence of the external cause; Y99.8 Other external cause status
CPT/HCPCS: 36415; 70450; 72125; 80307; 99284

== ENCOUNTER 2019-05-18 15:13 | Emergency (ER) | payer MEDICAID ==
[~2019-05-18] VITALS: Ht 177.8 cm; Wt 55.8 kg
[~2019-05-18 15:13] MED LIST changes: +LACT10SO24 PO; -LACT10SO5 PO
[2019-05-18 15:18] VITALS: BP 151/90
== END 2019-05-18 16:16 | disposition home or self-care (01) ==
LOC: ED 16:00
DX: S00.12XA Contusion of left eyelid and periocular area, initial encounter (principal); F10.220 Alcohol dependence with intoxication, uncomplicated; H11.32 Conjunctival hemorrhage, left eye; Y90.0 Blood alcohol level of less than 20 mg/100 ml; Y04.0XXA Assault by unarmed brawl or fight, initial encounter; Y93.89 Activity, other specified; Y92.89 Other specified places as the place of occurrence of the external cause; Y99.8 Other external cause status
CPT/HCPCS: 99283

== ENCOUNTER 2019-05-19 05:44 | Inpatient (IN) | payer MEDICAID ==
[~2019-05-19] VITALS: Ht 177.8 cm; Wt 59.9 kg
[2019-05-19] MEDS ORDERED: LORazepam 2 MG/ML, 1ML IVPush ONE (06:00)
[2019-05-19] MEDS ORDERED: FAMOTIDINE 20 MG/2 ML IV ONE (06:00)
[2019-05-19] MEDS ORDERED: SODIUM CHLORIDE FLUSH 10ML SYR IVF ONE (06:00)
[2019-05-19] MEDS ORDERED: ONDANSETRON 2MG/ML, 2ML IVPush ONE (06:00)
[2019-05-19] MEDS ORDERED: SODIUM CHLORIDE 0.9% 1,000ML IVBOLUS ONE (06:00)
[2019-05-19] MEDS ORDERED: ONDANSETRON 2MG/ML, 2ML ONE (06:10)
[2019-05-19] MEDS ORDERED: LORazepam 2 MG/ML, 1ML ONE (06:11)
[2019-05-19] MEDS ORDERED: FAMOTIDINE 20 MG/2 ML ONE ×2 (06:11→12:49)
--- NOTE | 2019-05-19 06:29 | NUR ---
PT PROVIDED A TOILET HAT, WOOD SPOONS AND SPECIMIN CUP FOR STOOL SAMPLE.
[2019-05-19 06:45] LABS: ALANINE AMINOTRANSFERASE 86 U/L (12-78); ANION GAP 10 mmol/L (5-15); CALCIUM 7.5 mg/dL (8.5-10.1); CHLORIDE 105 mmol/L (98-107); CREATININE 0.52 mg/dL (0.55-1.02)
[2019-05-19 06:48] LABS: ALKALINE PHOSPHATASE 151 U/L (45-117); BILIRUBIN,TOTAL 0.9 mg/dL (0.2-1.0); TOTAL PROTEIN 7.8 g/dL (6.4-8.2)
[2019-05-19 07:05] LABS: <PLATELET ESTIMATE> DECREASED; <PLT MORPHOLOGY> NORMAL PLT MORPH; <RBC MORPHOLOGY> NORMAL; BASOPHILS # (AUTO) 0.01 x10^3/uL (0-0.1); BASOPHILS % (AUTO) 0 % (0-1); EOSINOPHILS # (AUTO) 0.06 x10^3/uL (0-0.4); EOSINOPHILS % (AUTO) 2 % (1-7); LYMPHOCYTES # (AUTO) 0.63 x10^3/uL (1-3.4); LYMPHOCYTES % (AUTO) 23 % (22-44); MD MORPH REVIEW ONLY; MEAN CORPUSCULAR HEMOGLOBIN 32.5 pg (27.0-34.8); MEAN CORPUSCULAR HGB CONC 33.6 g/dL (32.4-35.8); MEAN CORPUSCULAR VOLUME 96.8 fL (80-100); MEAN PLATELET VOLUME 6.7 fL (7.4-10.4); MONOCYTES # (AUTO) 0.13 x10^3/uL (0.2-0.8); MONOCYTES % (AUTO) 5 % (2-9); NEUTROPHILS # (AUTO) 1.93 x10^3/uL (1.8-6.8); NEUTROPHILS % (AUTO) 70 % (42-75); PLATELET COUNT 83 x10^3/uL (130-400); RED CELL DISTRIBUTION WIDTH 16.4 % (9.6-15.2)
--- NOTE | 2019-05-19 09:48 | NUR ---
break RN note: pt sleeping, resps even and unlabored. awaiting max/fac surgeon consult and dispo at this time.
--- NOTE | 2019-05-19 09:50 | NUR ---
report given back to primary TEOFILO Gallego.
[2019-05-19] MEDS ORDERED: MAGNESIUM SULFATE PMX 2GM/50ML 50 ML IV ONE (12:00)
[2019-05-19] MEDS ORDERED: THIAMINE 200 MG, MVI ADULT 10 ML, FOLIC ACID 1 MG in D5%-0.9% NACL 1,000 ML IV SCH (12:00)
[2019-05-19] MEDS ORDERED: ONDANSETRON 2MG/ML, 2ML IVPush PRN (12:00)
[2019-05-19] MEDS ORDERED: ENALAPRILAT 1.25 MG/ML, 2ML IVPush PRN (12:00)
[2019-05-19] MEDS ORDERED: PROMETHAZINE 25 MG/ML, 1ML IM PRN (12:00)
[2019-05-19] MEDS ORDERED: LORazepam 2 MG/ML, 1ML IV PRN ×2 (12:00)
[2019-05-19] MEDS ORDERED: POTASSIUM CHLORIDE 40 MEQ in SODIUM CHLORIDE 0.9% 500 ML IV ONE (12:00)
[2019-05-19] MEDS ORDERED: ENOXAPARIN 40 MG/0.4 ML SQ SCH (12:00)
[2019-05-19] MEDS ORDERED: METOCLOPRAMIDE 5 MG/ML, 2ML IVPush PRN (12:00)
[2019-05-19] MEDS ORDERED: ENOXAPARIN 40 MG/0.4 ML ONE (12:49)
[2019-05-19] MEDS ORDERED: NICOTINE 14MG/24 HR PATCH.TD24 ONE (12:49)
[2019-05-19] MEDS: NICOTINE 14MG/24 HR PATCH.TD24 TD SCH (12:53)
[2019-05-19] MEDS: FAMOTIDINE 20 MG/2 ML IVPush SCH (12:53)
[2019-05-19 13:17] VITALS: BP 127/67
[2019-05-19] MEDS: LORazepam 2 MG/ML, 1ML IV PRN ×3 (14:21→21:42)
[2019-05-19 14:45] LABS: HCG UR SG 1.015 (1.003-1.030)
[2019-05-19] MEDS ORDERED: CHLORDIAZEPOXIDE 5 MG CAPSULE ONE (18:42)
[2019-05-19 19:11] VITALS: BP 137/77
[2019-05-19] MEDS ORDERED: CHLORDIAZEPOXIDE 5 MG CAPSULE PO SCH (21:00)
[2019-05-19] MEDS ORDERED: THIAMINE 200 MG in SODIUM CHLORIDE 0.9% 50 ML IV ONE (22:00)
[2019-05-20] MEDS: LORazepam 2 MG/ML, 1ML IV PRN ×3 (06:16→20:05)
[2019-05-20 06:20] VITALS: BP 145/77
[2019-05-20 06:54] VITALS: BP 118/53
[2019-05-20 07:15] LABS: CALCIUM 7.3 mg/dL (8.5-10.1); CHLORIDE 101 mmol/L (98-107)
[2019-05-20 07:20] LABS: ALANINE AMINOTRANSFERASE 77 U/L (12-78); ALBUMIN 2.6 g/dL (3.4-5.0); ALKALINE PHOSPHATASE 155 U/L (45-117); ANION GAP 11 mmol/L (5-15); BILIRUBIN,TOTAL 1.9 mg/dL (0.2-1.0); CHOLESTEROL, TOTAL 115 mg/dL (140-239); CREATININE 0.51 mg/dL (0.55-1.02); HDL CHOL % 50 % (28-40); HDL CHOLESTEROL (DIRECT) 58 mg/dL (40-60); LDL CHOLESTEROL,CALCULATED 48 mg/dL (54-169); LDL/HDL RATIO 0.8 (0.5-3.0); TOTAL PROTEIN 7.1 g/dL (6.4-8.2); TRIGLYCERIDES 47 mg/dL (50-200); VLDL CHOLESTEROL 9 mg/dL (0-25)
[2019-05-20 08:01] LABS: MEAN CORPUSCULAR HEMOGLOBIN 32.5 pg (27.0-34.8); MEAN CORPUSCULAR HGB CONC 32.9 g/dL (32.4-35.8); MEAN CORPUSCULAR VOLUME 98.8 fL (80-100); MEAN PLATELET VOLUME 7.3 fL (7.4-10.4); RED BLOOD COUNT 3.78 x10^6/uL (3.82-5.3); RED CELL DISTRIBUTION WIDTH 15.6 % (9.6-15.2)
[2019-05-20 08:05] LABS: PLATELET COUNT 47 x10^3/uL (130-400)
[2019-05-20 08:06] LABS: BASOPHILS # (AUTO) 0.02 x10^3/uL (0-0.1); BASOPHILS % (AUTO) 1 % (0-1); EOSINOPHILS # (AUTO) 0.04 x10^3/uL (0-0.4); EOSINOPHILS % (AUTO) 1 % (1-7); LYMPHOCYTES # (AUTO) 0.72 x10^3/uL (1-3.4); LYMPHOCYTES % (AUTO) 23 % (22-44); MD SCAN; MONOCYTES # (AUTO) 0.19 x10^3/uL (0.2-0.8); MONOCYTES % (AUTO) 6 % (2-9); NEUTROPHILS % (AUTO) 70 % (42-75)
[2019-05-20] MEDS ORDERED: POTASSIUM PHOS 4.4 MEQ/ML IV ONE (08:30)
[2019-05-20] MEDS ORDERED: MAGNESIUM SULFATE PMX 2GM/50ML 50 ML IV ONE (09:00)
[2019-05-20] MEDS ORDERED: POTASSIUM PHOSPHATE 44 MEQ in SODIUM CHLORIDE 0.9% 500 ML IV ONE (09:00)
[2019-05-20] MEDS ORDERED: CHLORDIAZEPOXIDE 10 MG CAPSULE ONE (09:24)
[2019-05-20] MEDS: CHLORDIAZEPOXIDE 5 MG CAPSULE PO SCH ×2 (09:33→15:33)
[2019-05-20] MEDS: MULTIVITAMIN 1 TABLET PO SCH (09:33)
[2019-05-20] MEDS: FAMOTIDINE 20 MG/2 ML IVPush SCH (09:33)
[2019-05-20] MEDS: FOLIC ACID 1 MG TABLET PO SCH (09:33)
[2019-05-20] MEDS: CHLORDIAZEPOXIDE 10 MG CAPSULE PO SCH ×2 (09:33→15:33)
[2019-05-20] MEDS: NICOTINE 14MG/24 HR PATCH.TD24 TD SCH (09:34)
[2019-05-20] MEDS: THIAMINE 100MG TABLET PO SCH (09:34)
[2019-05-20 12:00] VITALS: BP 131/70
[2019-05-20] MEDS ORDERED: OMNIPAQUE 350 MG/ML, 100ML BOTTLE ONE (14:17)
[2019-05-20 19:51] VITALS: BP 136/78
[2019-05-20 21:32] LABS: CLOSTRIDIUM DIFFICILE ANTIGEN NEGATIVE; CLOSTRIDIUM DIFFICILE TOXIN NEGATIVE (Negative)
[2019-05-21 00:36] VITALS: BP 127/72
[2019-05-21] MEDS: LORazepam 2 MG/ML, 1ML IV PRN ×2 (00:42→05:47)
[2019-05-21 06:50] LABS: ALBUMIN 2.7 g/dL (3.4-5.0); ANION GAP 8 mmol/L (5-15); CALCIUM 7.9 mg/dL (8.5-10.1); CHLORIDE 103 mmol/L (98-107)
[2019-05-21 06:53] LABS: ALANINE AMINOTRANSFERASE 76 U/L (12-78); ALKALINE PHOSPHATASE 166 U/L (45-117); CREATININE 0.48 mg/dL (0.55-1.02); TOTAL PROTEIN 7.3 g/dL (6.4-8.2)
[2019-05-21 06:55] VITALS: BP 128/72
[2019-05-21 07:05] LABS: MEAN CORPUSCULAR HEMOGLOBIN 32.3 pg (27.0-34.8); MEAN CORPUSCULAR HGB CONC 33.5 g/dL (32.4-35.8); MEAN CORPUSCULAR VOLUME 96.3 fL (80-100); MEAN PLATELET VOLUME 7.4 fL (7.4-10.4); RED BLOOD COUNT 3.91 x10^6/uL (3.82-5.3); RED CELL DISTRIBUTION WIDTH 15.2 % (9.6-15.2)
[2019-05-21 07:14] LABS: PLATELET COUNT 47 x10^3/uL (130-400)
[2019-05-21 07:42] LABS: BASOPHILS # (AUTO) 0.01 x10^3/uL (0-0.1); BASOPHILS % (AUTO) 0 % (0-1); EOSINOPHILS # (AUTO) 0.07 x10^3/uL (0-0.4); EOSINOPHILS % (AUTO) 2 % (1-7); LYMPHOCYTES # (AUTO) 0.77 x10^3/uL (1-3.4); LYMPHOCYTES % (AUTO) 21 % (22-44); MD SCAN; MONOCYTES # (AUTO) 0.16 x10^3/uL (0.2-0.8); MONOCYTES % (AUTO) 4 % (2-9); NEUTROPHILS % (AUTO) 73 % (42-75)
[2019-05-21] MEDS ORDERED: LORazepam 1MG TABLET PO PRN ×4 (11:30)
[2019-05-21] MEDS ORDERED: LORazepam 0.5MG TABLET ONE (11:32)
[2019-05-21] MEDS: FAMOTIDINE 20 MG TABLET PO SCH (11:34)
[2019-05-21] MEDS: LORazepam 0.5MG TABLET PO PRN (11:34)
[2019-05-21] MEDS: THIAMINE 100MG TABLET PO SCH (11:34)
[2019-05-21] MEDS: FOLIC ACID 1 MG TABLET PO SCH (11:34)
[2019-05-21] MEDS: NICOTINE 14MG/24 HR PATCH.TD24 TD SCH (11:35)
[2019-05-21] MEDS: MULTIVITAMIN 1 TABLET PO SCH (11:35)
[2019-05-21 12:07] VITALS: BP 139/77
[2019-05-21] MEDS ORDERED: POTASSIUM CHLORIDE 20 MEQ TAB.ER.PRT PO ONE (14:00)
[2019-05-21 20:00] VITALS: BP 111/66
[2019-05-22 01:33] VITALS: BP 129/76
[2019-05-22 06:09] LABS: ALBUMIN 2.7 g/dL (3.4-5.0); ANION GAP 9 mmol/L (5-15); CALCIUM 8.2 mg/dL (8.5-10.1); CHLORIDE 102 mmol/L (98-107)
[2019-05-22 06:14] LABS: ALANINE AMINOTRANSFERASE 62 U/L (12-78); ALKALINE PHOSPHATASE 158 U/L (45-117); BILIRUBIN,TOTAL 1.8 mg/dL (0.2-1.0); CREATININE 0.46 mg/dL (0.55-1.02); TOTAL PROTEIN 7.3 g/dL (6.4-8.2)
[2019-05-22 06:21] LABS: MEAN CORPUSCULAR HEMOGLOBIN 32.9 pg (27.0-34.8); MEAN CORPUSCULAR HGB CONC 33.7 g/dL (32.4-35.8); MEAN CORPUSCULAR VOLUME 97.5 fL (80-100); MEAN PLATELET VOLUME 7.6 fL (7.4-10.4); PLATELET COUNT 54 x10^3/uL (130-400); RED CELL DISTRIBUTION WIDTH 15.2 % (9.6-15.2)
[2019-05-22 07:04] LABS: BASOPHILS # (AUTO) 0.01 x10^3/uL (0-0.1); BASOPHILS % (AUTO) 0 % (0-1); EOSINOPHILS # (AUTO) 0.08 x10^3/uL (0-0.4); EOSINOPHILS % (AUTO) 2 % (1-7); LYMPHOCYTES # (AUTO) 0.87 x10^3/uL (1-3.4); LYMPHOCYTES % (AUTO) 22 % (22-44); MD SCAN; MONOCYTES # (AUTO) 0.22 x10^3/uL (0.2-0.8); MONOCYTES % (AUTO) 6 % (2-9); NEUTROPHILS # (AUTO) 2.75 x10^3/uL (1.8-6.8); NEUTROPHILS % (AUTO) 70 % (42-75)
[2019-05-22 07:09] VITALS: BP 123/66
[2019-05-22] MEDS: FOLIC ACID 1 MG TABLET PO SCH (08:23)
[2019-05-22] MEDS: MULTIVITAMIN 1 TABLET PO SCH (08:23)
[2019-05-22] MEDS: THIAMINE 100MG TABLET PO SCH (08:23)
[2019-05-22] MEDS: FAMOTIDINE 20 MG TABLET PO SCH (08:23)
[2019-05-22] MEDS: NICOTINE 14MG/24 HR PATCH.TD24 TD SCH (08:24)
[2019-05-22 13:14] VITALS: BP 119/67
[2019-05-22] MEDS ORDERED: LACTULOSE 20 GM/30 ML UDC PO PRN (16:00)
[2019-05-22 16:05] LABS: CULTURE INDICATED? YES; MICROSCOPIC INDICATED
[2019-05-22 20:00] VITALS: BP 107/69
[2019-05-23] MEDS: LORazepam 2 MG/ML, 1ML IV PRN ×2 (01:57→06:41)
[2019-05-23 02:34] VITALS: BP 159/81
[2019-05-23 06:27] LABS: MEAN CORPUSCULAR HEMOGLOBIN 32.9 pg (27.0-34.8); MEAN CORPUSCULAR VOLUME 99.5 fL (80-100); RED BLOOD COUNT 4.27 x10^6/uL (3.82-5.3); RED CELL DISTRIBUTION WIDTH 15.9 % (9.6-15.2)
[2019-05-23 06:31] LABS: CHLORIDE 103 mmol/L (98-107)
[2019-05-23 06:37] LABS: ANION GAP 9 mmol/L (5-15); CALCIUM 8.5 mg/dL (8.5-10.1); CREATININE 0.48 mg/dL (0.55-1.02)
[2019-05-23 06:43] LABS: MEAN PLATELET VOLUME 7.8 fL (7.4-10.4); PLATELET COUNT 66 x10^3/uL (130-400)
[2019-05-23 06:49] LABS: BASOPHILS # (AUTO) 0.01 x10^3/uL (0-0.1); BASOPHILS % (AUTO) 0 % (0-1); EOSINOPHILS # (AUTO) 0.06 x10^3/uL (0-0.4); EOSINOPHILS % (AUTO) 1 % (1-7); LYMPHOCYTES # (AUTO) 0.49 x10^3/uL (1-3.4); LYMPHOCYTES % (AUTO) 10 % (22-44); MD SCAN; MONOCYTES # (AUTO) 0.37 x10^3/uL (0.2-0.8); MONOCYTES % (AUTO) 8 % (2-9); NEUTROPHILS % (AUTO) 81 % (42-75)
[2019-05-23 08:20] VITALS: BP 117/72
[2019-05-23] MEDS: THIAMINE 100MG TABLET PO SCH (09:04)
[2019-05-23] MEDS: FAMOTIDINE 20 MG TABLET PO SCH ×2 (09:04→20:59)
[2019-05-23] MEDS: FOLIC ACID 1 MG TABLET PO SCH (09:04)
[2019-05-23] MEDS: POTASSIUM CHLORIDE 20 MEQ, MAGNESIUM SULFATE 1 GM, FOLIC ACID 1 MG, THIAMINE 200 MG, MV... IV SCH (09:04)
[2019-05-23] MEDS: MULTIVITAMIN 1 TABLET PO SCH (09:04)
[2019-05-23] MEDS: NICOTINE 14MG/24 HR PATCH.TD24 TD SCH (12:00)
[2019-05-23 13:59] VITALS: BP 109/69
[2019-05-23] MEDS ORDERED: OMNIPAQUE 350 MG/ML, 100ML BOTTLE ONE (17:48)
[2019-05-23 18:01] LABS: CULTURE INDICATED? YES; MICROSCOPIC INDICATED
[2019-05-23 20:27] VITALS: BP 109/71
[2019-05-24 00:51] VITALS: BP 129/86
[2019-05-24 06:15] LABS: MEAN CORPUSCULAR HEMOGLOBIN 33.1 pg (27.0-34.8); MEAN CORPUSCULAR VOLUME 100.1 fL (80-100); RED BLOOD COUNT 3.68 x10^6/uL (3.82-5.3)
[2019-05-24 06:17] LABS: ANION GAP 6 mmol/L (5-15); CALCIUM 7.7 mg/dL (8.5-10.1); CHLORIDE 108 mmol/L (98-107); CREATININE 0.42 mg/dL (0.55-1.02)
[2019-05-24 06:40] LABS: BASOPHILS # (AUTO) 0.02 x10^3/uL (0-0.1); BASOPHILS % (AUTO) 1 % (0-1); EOSINOPHILS # (AUTO) 0.12 x10^3/uL (0-0.4); EOSINOPHILS % (AUTO) 3 % (1-7); LYMPHOCYTES # (AUTO) 0.88 x10^3/uL (1-3.4); LYMPHOCYTES % (AUTO) 24 % (22-44); MD SCAN; MEAN PLATELET VOLUME 7.8 fL (7.4-10.4); MONOCYTES # (AUTO) 0.42 x10^3/uL (0.2-0.8); MONOCYTES % (AUTO) 11 % (2-9); NEUTROPHILS # (AUTO) 2.24 x10^3/uL (1.8-6.8); NEUTROPHILS % (AUTO) 61 % (42-75); PLATELET COUNT 73 x10^3/uL (130-400)
[2019-05-24] MEDS ORDERED: CEFTRIAXONE PMX 1GM/50ML 50 ML IV SCH (07:30)
[2019-05-24 09:05] VITALS: BP 127/77
[2019-05-24] MEDS: THIAMINE 100MG TABLET PO SCH (09:14)
[2019-05-24] MEDS: MULTIVITAMIN 1 TABLET PO SCH (09:14)
[2019-05-24] MEDS: FAMOTIDINE 20 MG TABLET PO SCH ×2 (09:14→19:38)
[2019-05-24] MEDS: FOLIC ACID 1 MG TABLET PO SCH (09:14)
[2019-05-24] MEDS: LORazepam 0.5MG TABLET PO PRN (09:32)
[2019-05-24] MEDS: POTASSIUM CHLORIDE 20 MEQ, MAGNESIUM SULFATE 1 GM, FOLIC ACID 1 MG, THIAMINE 200 MG, MV... IV SCH (10:58)
[2019-05-24] MEDS: NICOTINE 14MG/24 HR PATCH.TD24 TD SCH (13:23)
[2019-05-24 14:30] VITALS: BP 147/87
[2019-05-24 20:18] VITALS: BP 120/76
[2019-05-25 00:46] VITALS: BP 124/73
[2019-05-25 06:21] LABS: CULTURE INDICATED? YES; MICROSCOPIC INDICATED
[2019-05-25 06:38] LABS: ANION GAP 7 mmol/L (5-15); CALCIUM 8.5 mg/dL (8.5-10.1); CHLORIDE 103 mmol/L (98-107); CREATININE 0.44 mg/dL (0.55-1.02)
[2019-05-25 07:46] VITALS: BP 117/78
== END 2019-05-25 07:59 | disposition left against medical advice (07) | DRG 82 ==
LOC: ED 05:49 → EDIP 10:40 → 4EST 13:00
PROVIDERS: ADMIT Internal Medicine; ATTEND Internal Medicine
DX: S02.32XA Fracture of orbital floor, left side, initial encounter for closed fracture (principal); G92 Toxic encephalopathy; F10.231 Alcohol dependence with withdrawal delirium; S72.92XA Unspecified fracture of left femur, initial encounter for closed fracture; K85.20 Alcohol induced acute pancreatitis without necrosis or infection; S02.40DA Maxillary fracture, left side, initial encounter for closed fracture; B18.2 Chronic viral hepatitis C; D69.6 Thrombocytopenia, unspecified; E83.51 Hypocalcemia; E87.1 Hypo-osmolality and hyponatremia; S02.609A Fracture of mandible, unspecified, initial encounter for closed fracture; S02.40FA Zygomatic fracture, left side, initial encounter for closed fracture; E88.09 Other disorders of plasma-protein metabolism, not elsewhere classified; B96.20 Unspecified Escherichia coli [E. coli] as the cause of diseases classified elsewhere; Z53.29 Procedure and treatment not carried out because of patient's decision for other reasons; E87.6 Hypokalemia; F17.210 Nicotine dependence, cigarettes, uncomplicated; K52.9 Noninfective gastroenteritis and colitis, unspecified; K70.10 Alcoholic hepatitis without ascites; N39.0 Urinary tract infection, site not specified; W18.39XA Other fall on same level, initial encounter; Y04.0XXA Assault by unarmed brawl or fight, initial encounter; S00.83XA Contusion of other part of head, initial encounter; R56.9 Unspecified convulsions; Z59.0 Homelessness; Z80.9 Family history of malignant neoplasm, unspecified; Z82.49 Family history of ischemic heart disease and other diseases of the circulatory system; Z91.19 Patient's noncompliance with other medical treatment and regimen; Z88.8 Allergy status to other drugs, medicaments and biological substances; Y93.89 Activity, other specified; Y92.89 Other specified places as the place of occurrence of the external cause; Y99.8 Other external cause status
CPT/HCPCS: 36415; 70450; 70486; 71045; 72125; 74177; 80048; 80053; 80061; 80307; 81001; 81025; 82150; 83690; 83735; 84100; 84443; 85025; 86850; 86900; 87077; 87086; 87186; 87324; 89055; 93005; 96361; 96374; 96375; G0378; J0696; J1650; J2405; J3411; J3475; J3480; J7042; Q9967; J2060; J2765; J3490; J7030; J7040

== ENCOUNTER 2019-06-08 22:16 | Emergency (ER) | payer MEDICAID ==
[~2019-06-08] VITALS: Ht 167.6 cm; Wt 62.0 kg
--- NOTE | 2019-06-08 23:52 | NUR ---
PT MOSTLY MOUTH BREATHING. PT DID DESAT TO 69%. CANNULA MOVED TO MOUTH. PT NOW SATTING AT 98% ON 3L ORAL NASAL CANNULA
--- NOTE | 2019-06-09 01:36 | NUR ---
REPORT RECEIVED FROM TEOFILO LUIS. ASSUMED CARE OF PT. PT SLEEPING ON GURNEY, NO DISTRESS NOTED. WILL CONTINUE TO MONITOR
--- NOTE | 2019-06-09 02:21 | NUR ---
PT SLEEPING, RESPIRATIONS EVEN AND UNLABORED, NO DISTRESS NOTED.
[2019-06-09 03:36] VITALS: BP 142/84
--- NOTE | 2019-06-09 04:01 | NUR ---
PT AWAKE AND AMBULATORY TO RESTROOM WITH A STEADY GAIT.
--- NOTE | 2019-06-09 04:27 | NUR ---
PT AMBULATED TO NURSES STATION REQUESTING DIRECTIONS TO THE ELEVATOR. PT DIRECTED TO THE DC DESK FOR DISCHARGE. PT REFUSED TO WAIT FOR DC PAPERWORK
== END 2019-06-09 04:29 | disposition home or self-care (01) ==
LOC: ED 06-09 00:56
DX: F10.220 Alcohol dependence with intoxication, uncomplicated (principal); Y90.0 Blood alcohol level of less than 20 mg/100 ml
CPT/HCPCS: 99283

== ENCOUNTER 2019-06-20 07:06 | Emergency (ER) | payer MEDICAID ==
[~2019-06-20] VITALS: Ht 177.8 cm; Wt 58.9 kg
--- NOTE | 2019-06-20 08:27 | NUR ---
unable to wake pt to give her breakfast. breathing even and unlabored
[2019-06-20 09:55] VITALS: BP 108/67
--- NOTE | 2019-06-20 10:06 | NUR ---
sleeping. continue to monitor
--- NOTE | 2019-06-20 11:10 | NUR ---
PT AWAKE AND EATING BREAKFAST. INCONTINENT OF URINE. PROVIDED WIPES AND NEW PANTS. EXPLAINED TO PT DISCHARGE PENDING
--- NOTE | 2019-06-20 11:30 | NUR ---
PT NO LONGER IN ROOM AT THIS TIME. LEFT WITHOUT RECEIVING DISCHARGE.
== END 2019-06-20 12:46 | disposition home or self-care (01) ==
LOC: ED 11:27
DX: F10.120 Alcohol abuse with intoxication, uncomplicated (principal); Y90.9 Presence of alcohol in blood, level not specified
CPT/HCPCS: 99283

== ENCOUNTER 2019-06-20 18:54 | Emergency (ER) | payer MEDICAID ==
[~2019-06-20] VITALS: Ht 177.8 cm; Wt 56.7 kg
--- NOTE | 2019-06-20 19:43 | NUR ---
THIS 59 YOF BIB [facility] AFTER BEING FOUND LYING ON SIDEWALK AND UNABLE TO GET UP ON OWN. PT REPORTS HAS BEEN DRINKING "A LOT" TODAY. PT CURRENTLY DENIES C/O PAIN. PT REPORTS DOES NOT TAKE ANY DAILY PRESCRIPTION MEDICATIONS. PT CHANGED INTO GOWN AND PLACED ON POLICY SERVICES REPRESENTATIVE.
--- NOTE | 2019-06-20 20:05 | NUR ---
PT C/O IMMEDIATE PAIN UPON PALPATION TO LEFT ELBOW AND KNEE. NEW ORDERS RECEIVED.
--- NOTE | 2019-06-20 20:52 | NUR ---
PT RESTING QUIETLY AT THIS TIME.
--- NOTE | 2019-06-20 21:30 | NUR ---
PT RESTING QUIETLY AT THIS TIME, ABLE TO REPOSITION SELF ON GURNEY.
--- NOTE | 2019-06-20 22:10 | NUR ---
PT REPOSITIONED ON [place]. PT FELL BACK ASLEEP AFTER REPOSITIONING
--- NOTE | 2019-06-20 22:32 | NUR ---
PT ASSISTED TO BR. PT CURRENTLY GETTING DRESSED, STATES IS READY TO LEAVE.
--- NOTE | 2019-06-20 22:36 | NUR ---
PT PROVIDED W/ NEW WARM BLANKETS AND REPOSITIONED ON GURNEY. PROVIDED W/ WATER.
--- NOTE | 2019-06-20 23:37 | NUR ---
PT REPOSITIONED ON RPOLO FOR COMFORT. PROVIDED W/ NEW WARM BLANKETS.
--- NOTE | 2019-06-21 01:13 | NUR ---
ATTEMPTED TO WAKE PT UP, REPOSITIONED ON [place], DRANK CUP OF WATER. PT FELL BACK ASLEEP, REQUIRED REPEAT CALLING OF NAME TO WAKE UP. PT STATED, "I CAN'T STAY AWAKE. I NEED TO SLEEP."
[2019-06-21 02:14] VITALS: BP 104/64
--- NOTE | 2019-06-21 02:15 | NUR ---
PT REPOSITIONED TO SIT UP ON GURNEY, PROVIDED W/ THREE CUPS OF WATER. PT STATED "I'M GOING TO START DETOX SOON." PT ENCOURAGED TO REMAIN SITTING UP, PROVIDED W/ MORE WATER.
--- NOTE | 2019-06-21 02:31 | NUR ---
PT UNABLE TO AMBULATE FROM GURNEY TO SINK W/O STAGGERING AND ASSIST X 1. ERP UPDATED.
--- NOTE | 2019-06-21 02:50 | NUR ---
PT SEEN BY ERP. ORDER RECEIVED TO DC PT. PT GETTING DRESSED WITHOUT ASSISTANCE.
--- NOTE | 2019-06-21 02:59 | NUR ---
REVIEWED DISCHARGE INSTRUCTIONS W/ PT. PT DECLINED EDUCATION OR FURTHER INFORMATION. PT AMBULATED TO LOBBY WITHOUT DIFFICULTY.
== END 2019-06-21 03:01 | disposition home or self-care (01) ==
LOC: ED 20:34
DX: S09.90XA Unspecified injury of head, initial encounter (principal); F10.229 Alcohol dependence with intoxication, unspecified; G92 Toxic encephalopathy; F17.210 Nicotine dependence, cigarettes, uncomplicated; Z72.9 Problem related to lifestyle, unspecified; X58.XXXA Exposure to other specified factors, initial encounter; Y93.89 Activity, other specified; Y92.89 Other specified places as the place of occurrence of the external cause; Y99.8 Other external cause status; Y90.9 Presence of alcohol in blood, level not specified
CPT/HCPCS: 70450; 99284

== ENCOUNTER 2019-06-21 19:39 | Emergency (ER) | payer MEDICAID ==
[~2019-06-21] VITALS: Ht 177.8 cm; Wt 56.7 kg
--- NOTE | 2019-06-21 20:12 | NUR ---
PT SLEEPING SOUNDLY AT THIS TIME. NAD.
--- NOTE | 2019-06-21 21:25 | NUR ---
PT AMBULATORY AND DEMANDING HER PURSE. PT STATES THE HOSPITAL HAS STOLEB HER PURSE. PT WAS INFORMED SHE HAS EVERYTHING WITH HER THAT SHE ARRIVED WITH. PT VERBALLY ARGUMENTATIVE. AFTER A WHILE OF ARGUING PT THEN STATES HER PURSE IS WITH HER FRIEND WHO ALSO CHECKED IN AT THE SAME TIME. PT GAVE THIS RN PTS FRIEND NAME. PURSE WAS RETRIEVED FROM HER FRIEND AND GIVEN TO PT. PT NOW THANK FUL. PT AMBULATES TO DC DESK WITH STEADY GAIT.
[2019-06-21 21:27] VITALS: BP 109/84
== END 2019-06-21 21:28 | disposition home or self-care (01) ==
LOC: ED 21:16
DX: F10.120 Alcohol abuse with intoxication, uncomplicated (principal); F17.210 Nicotine dependence, cigarettes, uncomplicated; Z72.9 Problem related to lifestyle, unspecified; Z75.9 Unspecified problem related to medical facilities and other health care; Z91.14 Patient's other noncompliance with medication regimen; Y90.9 Presence of alcohol in blood, level not specified
CPT/HCPCS: 99283

== ENCOUNTER 2020-03-10 17:40 | Emergency (ER) | payer MEDICAID ==
[~2020-03-10] VITALS: Ht 177.8 cm; Wt 61.3 kg
[~2020-03-10 17:40] MED LIST changes: -PANT40TA5 PO; +PANT40TA6 PO
[2020-03-10 17:47] VITALS: BP 104/64
--- NOTE | 2020-03-10 17:56 | NUR ---
PT BIBA FOR ETOH. PER EMS PT FOUND SLEEPING IN HALLWAY OF [employer]. NO ONE ON SCENE COULD PROVIDE FURHTER ABOUT PT CIRCUMSTANCES. PT DENIES PAIN, TRAUMA, OR ILL FEELING, STATING "I JUST WANT TO SLEEP OR DRINK".
--- NOTE | 2020-03-10 19:50 | NUR ---
PT AMBULATED TO BATHOM WITH STEADY GAIT. PT AFTER SAID "SHE WANTED TO LEAVE AND THAT SHE DOES NOT NEED TO BE HERE" PT ABULATED TO LOBBY WITHOUT ASSISTANCE WITH STEADY GAIT
== END 2020-03-10 19:54 | disposition left against medical advice (07) ==
LOC: ED 19:46
DX: F10.129 Alcohol abuse with intoxication, unspecified (principal); Y90.9 Presence of alcohol in blood, level not specified
CPT/HCPCS: 99283

== ENCOUNTER 2020-06-11 17:50 | Emergency (ER) | payer MEDICAID ==
[~2020-06-11] VITALS: Ht 177.8 cm; Wt 59.0 kg
--- NOTE | 2020-06-11 18:10 | NUR ---
PT MARTIR FROM [facility] FOR SLEEPING ON THE FLOOR. PD ON SCENE, ATTEMPTED TO TRANSPORT PT TO [facility], PT REFUSED STATING SHE IS NOT INTERESTED IN DETOX. PT DENIES MEDICAL COMPLAINTS AT THIS TIME, UNABLE TO AMBULATE. FALL PRECAUTIONS IN PLACE. CONTINOUS SPO2 MONITORING IN PLACE. VSS.
--- NOTE | 2020-06-11 18:11 | NUR ---
PT REQUESTING TO USE CELL PHONE TO CALL HER BOYFRIEND, LORENA. PT GIVEN PURSE. WHILE THIS RN WAS CHARTING ON COMPUTER, PT FOUND 20 OZ BEER IN PURSE, OPENED THE CAN, AND ATTEMPTED TO START DRINKING BEER. THIS RN WAS ABLE TO GET PT TO HAND BEER OVER AND THE ALCOHOL WAS DISPOSED OF PRIOR TO THE PATIENT DRINKING ANY FURTHER. BEDSIDE REPORT TO TEOFILO FLORES.
--- NOTE | 2020-06-11 18:40 | NUR ---
PT SLEEPING, RESP EVEN & UNLABORED, SIDE RAILS UP X2, CALL LIGHT W/IN REACH.
[2020-06-11] MEDS ORDERED: GABA600T7 PO (18:45)
[2020-06-11] MEDS ORDERED: HYDR50TA99 PO (18:45)
[2020-06-11] MEDS ORDERED: RISP3TAB58 PO (18:45)
[2020-06-11] MEDS ORDERED: TRAZ150T62 PO (18:45)
--- NOTE | 2020-06-11 18:45 | NUR ---
EXTERNAL MED HX ACCESSED FOR PARTIAL MED RECONCILLIATION
[2020-06-11 19:15] VITALS: BP 133/82
--- NOTE | 2020-06-11 19:26 | NUR ---
PT ASLEEP, EVEN CHEST RISE & FALL NOTED, SIDE RAILS UP X2, CALL LIGHT W/IN REACH
--- NOTE | 2020-06-11 20:18 | NUR ---
PT OPENS EYES TO NAME, THEN QUICKLY SHUTS THEM. PT INCONTINENT OF URINE.
--- NOTE | 2020-06-11 21:16 | NUR ---
PT RESPONDS TO NAME. STATES SHE'S NOT READY TO GO HOME, SLURRING WORDS.
--- NOTE | 2020-06-11 21:21 | NUR ---
AMBULATORY TO & FROM BR W/OUT INCIDENT; GAIT STEADY.
--- NOTE | 2020-06-11 21:32 | NUR ---
PT REFUSED OFFER OF DRY PANTS. PT AMBULATORY TO DC AREA W/ STEADY GAIT; ACCOMPANIED BY THIS RN. ALL BELONGINGS WITH PT
== END 2020-06-11 21:34 | disposition home or self-care (01) ==
LOC: ED 18:33
DX: G31.2 Degeneration of nervous system due to alcohol (principal); F10.129 Alcohol abuse with intoxication, unspecified; F17.210 Nicotine dependence, cigarettes, uncomplicated; Y90.0 Blood alcohol level of less than 20 mg/100 ml
CPT/HCPCS: 99283; 99406